=== PATIENT | male | born 1975 | race Caucasian/White ===

== ENCOUNTER 2024-11-30 09:54 | Outpatient (CLI) | payer BC, OTHER, SELFPAY ==
--- NOTE | 2024-11-30 10:01 | US_ITS ---
WS: [id number] Scrotal and testicular ultrasound, 11/30/2024 Clinical Data: L TESTICULAR PAIN Comparison: None. Findings: The right testes measures 3.3 cm x 2.6 cm x 1.9 cm. The left testes measures 3.7 cm x 2.5 cm x 2.0 cm. There is normal bilateral blood flow with no evidence of orchitis or torsion. No masses or abnormal calcifications are noted. No epididymitis is seen. There is a small left varicocele. US/US scrotum [id number] Impression: Small left varicocele.
== END 2024-11-30 09:55 | disposition home or self-care (01) ==
LOC: RAD 09:59
PROVIDERS: PCP Nurse Practitioner Family; Visit Provider Nurse Practitioner Family
DX: I86.1 Scrotal varices (principal); N50.812 Left testicular pain
CPT/HCPCS: 76870